=== PATIENT | male | born 1970 | race Caucasian/White ===

== ENCOUNTER 2017-12-27 09:49 | Emergency (ER) | payer SELFPAY ==
[2017-12-27 10:00] VITALS: BP 100/55; PULSE 81; TEMP 99; BMI 41.1
== END 2017-12-27 11:00 | disposition left against medical advice (07) ==
LOC: JERFT 09:49
DX: Z53.21 Procedure and treatment not carried out due to patient leaving prior to being seen by health care provider (principal)
CPT/HCPCS: 99281-25